=== PATIENT | male | born 1960 | race Two or more races ===

== ENCOUNTER 2024-04-15 09:02 | Emergency (ER) | payer OTHER ==
[~2024-04-15] VITALS: Ht 175.3 cm; Wt 91.0 kg
[2024-04-15 09:05] VITALS: TEMP 98.4; O2SAT 99
[2024-04-15 10:02] LABS: CHLORIDE 106 mEq/L (98-107); POTASSIUM 3.3 mEq/L (3.5-5.1); SODIUM 143 mEq/L (136-145)
[2024-04-15 10:03] LABS: CALCIUM 8.9 mg/dL (8.7-10.4); CARBON DIOXIDE 28 mEq/L (21-32)
[2024-04-15 10:08] LABS: CREATININE 1.9 mg/dL (0.6-1.3); GLUCOSE 225 mg/dL (70-105); UREA NITROGEN BLOOD 21 mg/dL (9-23)
[2024-04-15 10:09] LABS: TROPONIN I HIGH SENSITIVITY 28 ng/L (3.0-53)
[2024-04-15 10:18] LABS: BG BASE EXCESS 0.3 mmol/L (-2.0-3.0); BG CARBOXYHEMOGLOBIN 0.6 % (0.5-1.5); BG FRACTION INSPIRED OXYGEN 21; BG HCO3 ACT 24.3 mmol/L (21.0-28.0); BG METHEMOGLOBIN 0.3 % (0.5-1.5); BG OXYGEN SATURATION 93.9 % (94.0-98.0); BG OXYHEMOGLOBIN 93.1 % (94.0-98.0); BG PCO2 36.9 mmHg (35.0-48.0); BG PH 7.436 (7.350-7.450); BG SAMPLE SITE LEFT BRACHIAL; BG TOTAL HEMOGLOBIN 11.4 g/dL (13.5-17.5); BG VENT MODE ROOM AIR
[2024-04-15 10:19] LABS: BASOPHILS % 0.8 % (0.0-2.0); DIFFERENTIAL COMMENT 0; EOSINOPHILS % 2.3 % (0.0-5.0); HEMATOCRIT. 35.2 % (42.0-52.0); MEAN CORPUSCULAR HEMOGLOBIN 24.3 pg (28.0-32.0); MEAN CORPUSCULAR HGB CONC 31.3 g/dL (31.0-37.0); MEAN CORPUSCULAR VOLUME 77.8 fL (80.0-94.0); MEAN PLATELET VOLUME 9.1 fl (7.4-10.4); MONOCYTES % 5.9 % (2.0-8.0); PLATELET 227 x1000/uL (130-400); RED BLOOD CELL COUNT 4.53 mill/uL (4.7-6.1); RED CELL DISTRIBUTION WIDTH 15.7 % (11.6-14.6); WHITE BLOOD COUNT 4.8 x1000/uL (4.5-11.0)
[2024-04-15] MEDS: CEFTRIAXONE 1GM/50ML 50 ML IV NR (11:00)
[2024-04-15] MEDS: AZITHROMYCIN 500MG/250ML 250 ML IV NR (11:53)
[2024-04-15 12:00] VITALS: BP 133/91; PULSE 76; RESP 18; O2SAT 97
[2024-04-15] MEDS ORDERED: LEVO750T68 MT (12:45)
[2024-04-15] MEDS: HYDRALAZINE 20MG/ML VIAL IV ONE (12:59)
== END 2024-04-15 13:36 | disposition left against medical advice (07) ==
LOC: ER 09:02
DX: J18.9 Pneumonia, unspecified organism (principal); E11.9 Type 2 diabetes mellitus without complications; I10 Essential (primary) hypertension
CPT/HCPCS: 80048; 83880; 85025; 87040; 84484; 36415; 71045; 82805; 82375; 93005; 96368; 96365; 96366; 96375; 99285; 36600; J0456; J0696; J0360; Z7610